=== PATIENT | female | born 1985 | race Caucasian/White ===

== ENCOUNTER 2019-12-18 16:34 | Observation (INO) | payer OTHER ==
[~2019-12-18] VITALS: Ht 158 cm; Wt 88.0 kg
[~2019-12-18 16:34] MED LIST: DSS100 PO; FERR-89 PO; IBUP-2070 PO; PERCT PO; PREN1TAB80 PO
[2019-12-28 18:31] VITALS: BP 117/57
[2019-12-28] MEDS ORDERED: DOCU-275 PO (18:31)
== END 2019-12-28 21:10 | disposition home or self-care (01) ==
LOC: 4S 12-28 17:47
PROVIDERS: ADMIT Obstetrics & Gynecology; ATTEND Obstetrics & Gynecology
DX: O46.93 Antepartum hemorrhage, unspecified, third trimester (principal); Z3A.36 36 weeks gestation of pregnancy
CPT/HCPCS: 59025; 76811; 81001; G0378

== ENCOUNTER 2020-01-13 18:10 | Observation (INO) | payer OTHER ==
[~2020-01-13] VITALS: Ht 158 cm; Wt 93.4 kg
[~2020-01-13 18:10] MED LIST changes: +DOCU-275 PO; -DSS100 PO
[2020-01-13 18:46] VITALS: BP 122/64
[2020-01-13 19:00] LABS: BASOPHILS % (AUTO) 0.4 % (0.0-2.0); EOSINOPHILS % (AUTO) 1.4 % (1.0-6.0); HEMATOCRIT 28.8 % (36-46); HEMOGLOBIN 9.4 g/dL (12.0-16.0); LYMPHOCYTES # (AUTO) 1.7 K/uL (1.0-4.8); LYMPHOCYTES % (AUTO) 19.6 % (22.0-44.0); MEAN CORPUSCULAR HEMOGLOBIN 26.3 pg (26.0-34.0); MEAN CORPUSCULAR HGB CONC 32.6 G/dL (31.0-37.0); MEAN CORPUSCULAR VOLUME 81 fL (80-100); MONOCYTES # (AUTO) 0.6 K/uL (0.1-1.0); MONOCYTES % (AUTO) 6.6 % (2.0-9.0); NEUTROPHILS # (AUTO) 6.4 K/uL (1.8-7.7); PLATELET COUNT (AUTO)-OB 292 K/uL (150-450); RED BLOOD CELL COUNT(AUTO) 3.57 MIL/uL (4.00-5.20)
[2020-01-13 19:08] LABS: ANION GAP 13 mmol/L (8-16); CALCIUM, TOTAL 8.1 mg/dL (8.8-10.5); CARBON DIOXIDE 21 mmol/L (22-29); CHLORIDE 105 mmol/L (98-107); CREATININE 0.72 mg/dL (0.60-1.30); GLOMERULAR FILTR. RATE CALC > 60 mL/min (>60); GLUCOSE,RANDOM 161 mg/dL (70-110); POTASSIUM 3.6 mmol/L (3.5-5.1); SODIUM SERUM 139 mmol/L (136-145); UREA NITROGEN, BLOOD 16 mg/dL (7-18)
[2020-01-13 19:13] LABS: ALANINE AMINOTRANSFERASE 11 U/L (12-78); ALBUMIN 2.4 g/dL (3.4-5.0); ALKALINE PHOSPHATASE 215 U/L (46-116); ASPARTATE AMINOTRANSFERASE 15 U/L (15-37); BILIRUBIN,TOTAL 0.3 mg/dL (0.1-1.0); TOTAL PROTEIN, SERUM 6.1 g/dL (6.4-8.2); URIC ACID 4.1 mg/dL (2.6-7.2)
[2020-01-13 20:08] LABS: COLLECTION TIME,URINE 24 HR
[2020-01-13 20:12] LABS: TPROTEIN TIMED,URINE 31 mg/dL; TPROTEIN URINE, 24HRS COLL 155 mg/24Hr (0-165)
== END 2020-01-13 20:45 | disposition home or self-care (01) ==
LOC: 4S 18:10
PROVIDERS: ADMIT Obstetrics & Gynecology Obstetrics; ATTEND Obstetrics & Gynecology Obstetrics
DX: Z03.818 Encounter for observation for suspected exposure to other biological agents ruled out (principal); O13.3 Gestational [pregnancy-induced] hypertension without significant proteinuria, third trimester; Z3A.38 38 weeks gestation of pregnancy
CPT/HCPCS: 36415; 59025; 80053; 81001; 81050; 84156; 84550; 85025; 87635; G0378

== ENCOUNTER 2020-01-17 17:28 | Inpatient (IN) | payer OTHER ==
[~2020-01-17] VITALS: Ht 158 cm; Wt 90.7 kg
[2020-01-17 18:57] LABS: BASOPHILS % (AUTO) 0.4 % (0.0-2.0); EOSINOPHILS % (AUTO) 0.9 % (1.0-6.0); HEMATOCRIT 33.4 % (36-46); HEMOGLOBIN 10.6 g/dL (12.0-16.0); LYMPHOCYTES # (AUTO) 1.9 K/uL (1.0-4.8); LYMPHOCYTES % (AUTO) 17.2 % (22.0-44.0); MEAN CORPUSCULAR HEMOGLOBIN 25.7 pg (26.0-34.0); MEAN CORPUSCULAR HGB CONC 31.8 G/dL (31.0-37.0); MEAN CORPUSCULAR VOLUME 81 fL (80-100); MONOCYTES % (AUTO) 9.1 % (2.0-9.0); NEUTROPHILS % (AUTO) 72.4 % (40.0-70.0); PLATELET COUNT (AUTO)-OB 311 K/uL (150-450); RED BLOOD CELL COUNT(AUTO) 4.12 MIL/uL (4.00-5.20); RED CELL DISTRIBUTION WIDTH 14.3 % (11.5-14.5)
[2020-01-17 19:15] LABS: ANION GAP 13 mmol/L (8-16); CALCIUM, TOTAL 8.4 mg/dL (8.8-10.5); CARBON DIOXIDE 22 mmol/L (22-29); CHLORIDE 104 mmol/L (98-107); CREATININE 0.62 mg/dL (0.60-1.30); GLOMERULAR FILTR. RATE CALC > 60 mL/min (>60); GLUCOSE,RANDOM 70 mg/dL (70-110); POTASSIUM 4.8 mmol/L (3.5-5.1); SODIUM SERUM 139 mmol/L (136-145); UREA NITROGEN, BLOOD 11 mg/dL (7-18)
[2020-01-17 19:18] LABS: ALANINE AMINOTRANSFERASE 12 U/L (12-78); ALBUMIN 2.7 g/dL (3.4-5.0); ALKALINE PHOSPHATASE 249 U/L (46-116); ASPARTATE AMINOTRANSFERASE 14 U/L (15-37); BILIRUBIN,TOTAL 0.2 mg/dL (0.1-1.0); TOTAL PROTEIN, SERUM 6.7 g/dL (6.4-8.2)
[2020-01-17] MEDS ORDERED: RINGERS SOLUTION,LACTATED 1,000 ML IV ONE ×2 (19:32→19:42)
[2020-01-17] MEDS ORDERED: SODIUM CHLORIDE 0.9% 1,000 ML ONE (19:42)
[2020-01-17] MEDS ORDERED: BUPIVACAINE HCL/DEX-WATER/PF 0.75% 2 ML AMP ONE (19:42)
[2020-01-17] MEDS ORDERED: METOCLOPRAMIDE HCL 5 MG/ML 2 ML VIAL IVP ONE (19:45)
[2020-01-17] MEDS ORDERED: CITRIC ACID/SODIUM CITRATE 30 ML SOLUTION UDCUP PO ONE (19:45)
[2020-01-17 20:12] VITALS: BP 125/60
[2020-01-17] MEDS ORDERED: HYDROmorphone 2 MG/ML SYRINGE IVP PRN (20:15)
[2020-01-17] MEDS ORDERED: FentaNYL CITRATE-PF 100 MCG/2 ML VIAL IVP PRN ×2 (20:15→21:15)
[2020-01-17] MEDS ORDERED: MEPERIDINE-PF 25 MG/ML VIAL IVP PRN (20:15)
[2020-01-17] MEDS ORDERED: MORPHINE SULFATE 10 MG/ML SYRINGE IVP PRN (21:15)
[2020-01-17] MEDS ORDERED: ONDANSETRON HCL 4 MG/2 ML VIAL IVP PRN (21:15)
[2020-01-17] MEDS ORDERED: NALBUPHINE HCL 10 MG/ML VIAL IVP PRN ×2 (21:15)
[2020-01-17] MEDS ORDERED: NALOXONE HCL 0.4 MG/ML VIAL IVP PRN (21:15)
[2020-01-17] MEDS ORDERED: DiphenhydrAMINE HCL 50 MG/ML VIAL IVP PRN (21:15)
[2020-01-17] MEDS ORDERED: OXYTOCIN 30 UNITS/LACT RINGERS 500 ML IV ONE (21:36)
[2020-01-17] MEDS ORDERED: OxyCODONE HCL/ACETAMINOPHEN 5-325 MG TABLET PO PRN ×2 (21:45)
[2020-01-17] MEDS ORDERED: LANOLIN 7 GM OINTMENT TP PRN (21:45)
[2020-01-17 23:00] LABS: CREATININE,URINE RANDOM 76.9 mg/dL (30.0-125.0)
[2020-01-17] MEDS: RINGERS SOLUTION,LACTATED 1,000 ML IV SCH (23:36)
[2020-01-17] MEDS: ACETAMINOPHEN 1000 MG/ISO-OSM 100 ML IV SCH (23:37)
[2020-01-18] MEDS: KETOROLAC TROMETHAMINE 30 MG/ML VIAL IVP SCH ×2 (03:40→09:32)
[2020-01-18] MEDS ORDERED: KETOROLAC TROMETHAMINE 60 MG/2 ML VIAL IM ONE (05:53)
[2020-01-18] MEDS ORDERED: ONDANSETRON HCL 4 MG/2 ML VIAL IVP ONE (05:53)
[2020-01-18] MEDS ORDERED: 0.9% SODIUM CHLORIDE 10 ML VIAL IVP ONE (05:53)
[2020-01-18] MEDS ORDERED: OXYTOCIN 10 UNITS/ML VIAL IM ONE (05:53)
[2020-01-18] MEDS ORDERED: EPHEDrine SULFATE 50 MG/ML VIAL IM ONE (05:53)
[2020-01-18] MEDS ORDERED: LIDOCAINE/PF 2% 5 ML VIAL IM ONE (05:53)
[2020-01-18 07:04] LABS: BASOPHILS % (AUTO) 0.2 % (0.0-2.0); EOSINOPHILS % (AUTO) 0.4 % (1.0-6.0); HEMATOCRIT 25.1 % (36-46); HEMOGLOBIN 8.1 g/dL (12.0-16.0); LYMPHOCYTES # (AUTO) 1.7 K/uL (1.0-4.8); LYMPHOCYTES % (AUTO) 14.7 % (22.0-44.0); MEAN CORPUSCULAR HEMOGLOBIN 26.2 pg (26.0-34.0); MEAN CORPUSCULAR HGB CONC 32.3 G/dL (31.0-37.0); MEAN CORPUSCULAR VOLUME 81 fL (80-100); MONOCYTES # (AUTO) 0.8 K/uL (0.1-1.0); MONOCYTES % (AUTO) 6.9 % (2.0-9.0); NEUTROPHILS # (AUTO) 8.8 K/uL (1.8-7.7); NEUTROPHILS % (AUTO) 77.8 % (40.0-70.0); PLATELET COUNT (AUTO)-OB 227 K/uL (150-450); RED BLOOD CELL COUNT(AUTO) 3.09 MIL/uL (4.00-5.20); RED CELL DISTRIBUTION WIDTH 14.2 % (11.5-14.5)
[2020-01-18] MEDS: ACETAMINOPHEN 1000 MG/ISO-OSM 100 ML IV SCH (07:42)
[2020-01-18] MEDS: RINGERS SOLUTION,LACTATED 1,000 ML IV SCH (07:43)
[2020-01-18] MEDS ORDERED: OXYGEN THERAPY IH SCH ×3 (08:00)
[2020-01-18] MEDS ORDERED: SOD FERRIC GLUC COMPLX/SUCROSE 125 MG in SODIUM CHLORIDE 0.9% 100 ML IV SCH (09:00)
[2020-01-18] MEDS: MAGNESIUM HYDROXIDE SUSPENSION 30 ML UDCUP PO SCH ×2 (09:04→21:05)
[2020-01-18] MEDS: IBUPROFEN 800 MG TABLET PO PRN (18:01)
[2020-01-18] MEDS ORDERED: IBUPROFEN 800 MG TABLET PO PRN (21:45)
[2020-01-19] MEDS: IBUPROFEN 800 MG TABLET PO PRN (04:16)
[2020-01-19] MEDS ORDERED: FentaNYL CITRATE-PF 100 MCG/2 ML VIAL IVP ONE (05:31)
[2020-01-19] MEDS ORDERED: MORPHINE SULFATE/PF 0.5 MG/ML 10 ML AMP IVP ONE (05:31)
[2020-01-19 07:29] LABS: BASOPHILS % (AUTO) 0.3 % (0.0-2.0); EOSINOPHILS % (AUTO) 1.6 % (1.0-6.0); HEMATOCRIT 28.3 % (36-46); HEMOGLOBIN 9.4 g/dL (12.0-16.0); LYMPHOCYTES # (AUTO) 1.7 K/uL (1.0-4.8); LYMPHOCYTES % (AUTO) 14.1 % (22.0-44.0); MEAN CORPUSCULAR HEMOGLOBIN 26.7 pg (26.0-34.0); MEAN CORPUSCULAR HGB CONC 33.2 G/dL (31.0-37.0); MEAN CORPUSCULAR VOLUME 80 fL (80-100); MONOCYTES # (AUTO) 0.8 K/uL (0.1-1.0); MONOCYTES % (AUTO) 6.8 % (2.0-9.0); NEUTROPHILS # (AUTO) 9.3 K/uL (1.8-7.7); NEUTROPHILS % (AUTO) 77.2 % (40.0-70.0); PLATELET COUNT (AUTO)-OB 257 K/uL (150-450); RED BLOOD CELL COUNT(AUTO) 3.51 MIL/uL (4.00-5.20); RED CELL DISTRIBUTION WIDTH 14.2 % (11.5-14.5)
[2020-01-19] MEDS: MAGNESIUM HYDROXIDE SUSPENSION 30 ML UDCUP PO SCH (08:37)
[2020-01-19] MEDS ORDERED: IBUP-2124 PO (10:24)
[2020-01-19] MEDS ORDERED: FERR-89 PO (10:25)
[2020-01-19] MEDS ORDERED: DOCU-275 PO (10:26)
[2020-01-19] MEDS ORDERED: PERCT PO (10:29)
[2020-01-19] MEDS ORDERED: IBUP-2071 PO (10:33)
== END 2020-01-19 10:50 | disposition home or self-care (01) | DRG 788 ==
LOC: OBSVTOIN 17:28 → 4S 17:28
PROVIDERS: ADMIT Obstetrics & Gynecology; ATTEND Obstetrics & Gynecology
PROC: 10D00Z1 Extraction of Products of Conception, Low, Open Approach (ICD-10-PCS; principal; 2020-01-17)
DX: O13.4 Gestational [pregnancy-induced] hypertension without significant proteinuria, complicating childbirth (principal); O34.211 Maternal care for low transverse scar from previous cesarean delivery; Z3A.39 39 weeks gestation of pregnancy; Z37.0 Single live birth; Z03.818 Encounter for observation for suspected exposure to other biological agents ruled out
CPT/HCPCS: 82570; 84156; 86850; 86900; 86901; 87081; J0131; J0690; J1885; J2274; J2405; J2590; J2765; J2916; J3010; J3490; J7030; J7050; J7120